=== PATIENT | male | born 1965 | race Caucasian/White ===

== ENCOUNTER 2022-05-04 20:25 | Emergency (ER) | payer BC ==
[~2022-05-04] VITALS: Ht 182.9 cm; Wt 142.9 kg
[~2022-05-04 20:25] MED LIST: LEVAQUIN500 MG PO; TRIBENZOR 20-51 EACH
[2022-05-04] MEDS ORDERED: IBUPROFEN 200 MG TAB PO ONE (21:30)
[2022-05-04] MEDS ORDERED: CLONIDINE HCL 0.1 MG TAB PO ONE (21:30)
[2022-05-04] MEDS ORDERED: CEFTRIAXONE 1 GM VIAL IM ONE (21:30)
[2022-05-04] MEDS ORDERED: CEFDINIR300 MG PO (21:43)
[2022-05-04] MEDS ORDERED: DIPHENHYDRAMINE50 M1 PO (21:43)
[2022-05-04] MEDS ORDERED: IBUPROFEN200 MG PO (21:43)
[2022-05-04] MEDS ORDERED: IBUPROFEN 400 MG TAB ONE (22:00)
[2022-05-04] MEDS ORDERED: CEFTRIAXONE 1 GM VIAL ONE (22:00)
[2022-05-04] MEDS ORDERED: CLONIDINE HCL 0.1 MG TAB ONE (22:00)
[2022-05-04 22:10] VITALS: BP 186/90
== END 2022-05-04 22:10 | disposition home or self-care (01) ==
LOC: FSED 20:40
DX: R50.9 Fever, unspecified (principal); H66.92 Otitis media, unspecified, left ear; J06.9 Acute upper respiratory infection, unspecified; R05.9 Cough, unspecified; I16.0 Hypertensive urgency; R53.81 Other malaise; I10 Essential (primary) hypertension
CPT/HCPCS: 83518; 87400; 96372; 99283; J0696

== ENCOUNTER 2023-08-10 21:27 | Emergency (ER) | payer BC, OTHER ==
[~2023-08-10] VITALS: Ht 182.9 cm; Wt 142.9 kg
[~2023-08-10 21:27] MED LIST changes: +CEFDINIR300 MG PO; +DIPHENHYDRAMINE50 M1 PO; +IBUPROFEN200 MG PO
[2023-08-10 22:46] VITALS: O2SAT 97
[2023-08-10] MEDS ORDERED: Morphine 4mg INJECTION 4 MG/ML INJ ONE (22:55)
[2023-08-10] MEDS ORDERED: SODIUM CHLORIDE 0.9% 1000ML 1,000 ML ONE (22:55)
[2023-08-10] MEDS ORDERED: ONDANSETRON HCL INJ 2MG/ML 2ML 2 MG/ML VIAL ONE (22:55)
[2023-08-10] MEDS ORDERED: FAMOTIDINE 20 MG/2 ML VIAL IV ONE (22:56)
[2023-08-10] MEDS: Morphine 4mg INJECTION 4 MG/ML INJ IV ONE (22:57)
[2023-08-10] MEDS: ONDANSETRON HCL INJ 2MG/ML 2ML 2 MG/ML VIAL IV STA (22:57)
[2023-08-10] MEDS: FAMOTIDINE 20 MG/2 ML VIAL IV STA (22:57)
[2023-08-10] MEDS: SODIUM CHLORIDE 0.9% 1000ML 1,000 ML IV ONE (22:58)
== END 2023-08-11 00:35 | disposition home or self-care (01) ==
LOC: FSED 22:19
DX: R11.2 Nausea with vomiting, unspecified (principal); D61.818 Other pancytopenia; C61 Malignant neoplasm of prostate; C79.51 Secondary malignant neoplasm of bone; Z79.69 Long term (current) use of other immunomodulators and immunosuppressants; G89.29 Other chronic pain
CPT/HCPCS: 80053; 85025; 99283; J2270; J2405; J7030; 93005